=== PATIENT | female | born 1970 | race Caucasian/White ===

== ENCOUNTER → 2021-02-16 14:25 | Outpatient (BNVA) | payer MEDICAID, SELFPAY | PROVIDERS: Family Provider Family Medicine; Visit Provider Obstetrics & Gynecology | DX: R19.04 Left lower quadrant abdominal swelling, mass and lump (principal); Z90.710 Acquired absence of both cervix and uterus | CPT/HCPCS: 76830; 76857 ==

== ENCOUNTER → 2021-02-18 14:17 | Outpatient (BNVA) | payer MEDICAID, SELFPAY | PROVIDERS: Family Provider Family Medicine; Referring Provider Obstetrics & Gynecology; Visit Provider Surgery | DX: K40.20 Bilateral inguinal hernia, without obstruction or gangrene, not specified as recurrent (principal); R10.32 Left lower quadrant pain; R19.09 Other intra-abdominal and pelvic swelling, mass and lump; Z20.822 Contact with and (suspected) exposure to COVID-19 | CPT/HCPCS: 87635 ==

== ENCOUNTER 2021-02-23 11:48 | Day surgery (SDC) | payer MEDICAID, SELFPAY ==
[2021-02-22 12:51] VITALS: BMI 27.1
--- NOTE | 2021-02-23 12:12 | W.PM.OPSUD ---
Surgery/Procedure H&P Update DATE OF PROCEDURE: February 23, 2021 DATE H&P PERFORMED: 02/18/21 H&P UPDATE INFORMATION: I have reviewed H&P completed within last 30 days, I have examined patient prior to procedure and No changes to prior documentation PLANNED PROCEDURE: Operation Date: 02/23/21 13:10 Proposed Procedures p Laparoscopic Inguinal Hernia Repair [id number] K42.02(Not Applicable) - Yahir Washington MD
--- NOTE | 2021-02-23 12:24 | ANES.PREANE2 ---
Pre-Anesthetic Assessment Pre-Anesthetic Assessment: Height/Weight: Height 1.55 m Weight 65.317 kg Preop Diagnosis: Bilateral inguinal hernia Proposed Procedure: Operation Date: 02/23/21 13:10 Proposed Procedures p Laparoscopic Inguinal Hernia Repair [id number] K42.02(Not Applicable) - Yahir Washington MD Familial anesthetic complications: None Was Beta Carmine taken within 24 hours: N/A Was Clonidine taken within 24 hours: N/A Last intake: Intake Last Liquid Date 02/23/21 Last Liquid Time 08:00 Last Solid Date 02/22/21 Last Solid Time 22:30 Social: Social History: No alcohol and No tobacco Exam: Pre-Anes Outpt Exam: alert, oriented x 3, clear to auscultation bilaterally and regular rate & rhythm Airway: Cervical ROM: WNL MP: 3 Dentition: Full GI: GI: GERD (occassional) Anesthetic Plan: ASA status: 2 Anesthesia: General Risk of > 500 ml blood loss (7ml/kg in children): No PFSH Anesthesia PFSH: Medical History (Updated 02/18/21 @ 17:07 by Yahir Washington MD) Esophageal abnormality Surgery as a infant. Tubal , rupture of 2011 - Surgery for ruptured ectopic - [place], [place] by Dr. Brown Surgical History (Updated 02/18/21 @ 14:02 by Katheryn Torres) History of hysterectomy [place], [place] by Dr. Brown. Family History Other Osteoarthritis Denies family history of Diabetes CAD (coronary artery disease) Clotting disorder Dementia Psychiatric illness Chronic kidney disease (CKD) Suicide Anesthesia complication Bleeding disorder Family history of premature coronary artery disease Lung disease Cancer Hypertension Stroke Social History Smoking and tobacco status: never smoked Data Anesthesia Cardiac Studies: No Data to Display
[2021-02-23] MEDS: sodium chloride 0.9% 1,000 ML 30 ML IV (12:33)
--- NOTE | 2021-02-23 14:15 | P.OP_ITS ---
Operative Report Date of procedure: February 23, 2021 Pre-op Diagnosis: Bilateral inguinal hernia Post-op Diagnosis: Bilateral reducible indirect inguinal hernia Procedure Done: Laparoscopic total extraperitoneal repair of bilateral reducible indirect inguinal hernia with Ultrapro mesh measuring 15 x 10 cm x2 Pathology: none sent Surgeon: Yahir Washington Anesthesia: General Condition: stable Disposition: PACU Procedure: The patient was taken to the operating room. After IV antibiotic was administered, the abdomen was prepped and draped in a sterile manner. Using a 15 blade, a 1.0 cm transverse incision was made infraumbilically on the left s daljit. Subcutaneous tissue was divided using electrocautery and the anterior rectus sheath divided using an 11 blade. The rectus muscle was retracted laterally and the extraperitoneal space identified. A 11 mm port was placed and 12 mm of pneumoperitoneum was created. A 10 mm 30? scope was introduced and the retrorectus space was opened using the camera up to the pubic symphysis and 5 mm ports were placed in the midline, one 2-fingerbreadths above the pubic symphysis and the other midway between these two ports under direct visualization. Blunt dissection was carried out to open up the tissue in the midline and to the pubic symphysis, which was identified. The dissection was then carried laterally where the iliopubic tract was identified. There was no femoral, obturator or direct hernia noted. The inferior epigastric artery was identified and dissection was carried posterior to it and laterally, the space was opened up to the level of the umbilicus superior to the anterior superior iliac spine. I then proceeded to dissect out the round ligament and the indirect hernial sac was reduced . The dissection was then carried laterally where the iliopubic tract was identified. There was no femoral, obturator or direct hernia noted. The inferior epigastric artery was identified and dissection was carried posterior to it and laterally, the space was opened up to the level of the umbilicus superior to the anterior superior iliac spine. I then proceeded to dissect out the round ligament and the indirect hernial sac was reduced . 15 x 10cm Ultrapro mesh was rolled and introduced through the 10 mm port and then rolled laterally and apposed well against the abdominal wall to cover the myopectineal orifice completely and held in place with Securestraps on the left side. 15 x 10cm Ultrapro mesh was rolled and introduced through the 10 mm port and then rolled laterally and apposed well against the abdominal wall to cover the myopectineal orifice completely and held in place with Securestraps on the right side. 10 Cc of 0.5% Marcaine was infiltrated into the preperitoneal space. The extraperitoneal space was desufflated under direct visualization to ensure no sl ippage of hernial sac under the mesh. All ports were removed, the anterior rectus fascia at the infraumbilical port closed using figure of eight 0 Vicryl sutures, subcutaneous tissue approximated using 3-0 Vicryl sutures and skin at all three port sites were closed using running subcuticular 4-0 Monocryl sutures and Dermabond. 10 mL of 0.5% Marcaine was infiltrated at the port sites. The patient was stable throughout the procedure.
[2021-02-23 14:37] VITALS: BP 125/63; PULSE 67; RESP 18; TEMP 36.1; O2SAT 100
[2021-02-23 14:45] VITALS: BP 121/62; PULSE 56; RESP 18; O2SAT 100
[2021-02-23 14:49] VITALS: BP 114/60; PULSE 68; RESP 18; O2SAT 98
[2021-02-23 14:54] VITALS: BP 114/64; PULSE 68; RESP 18; TEMP 36.1; O2SAT 99
[2021-02-23 15:30] VITALS: BP 135/75; PULSE 65; RESP 18; O2SAT 95
[2021-02-23] MEDS: ondansetron 2 mg/ML SDV 2 mL 4 MG IVP (15:46)
[2021-02-23 16:00] VITALS: BP 138/75; PULSE 62; RESP 18; O2SAT 95
--- NOTE | 2021-02-24 11:30 | P.OP_ITS ---
Operative Report Date of procedure: February 23, 2021 Pre-op Diagnosis: Bilateral inguinal hernia Post-op Diagnosis: Bilateral reducible indirect inguinal hernia Procedure Done: Laparoscopic total extraperitoneal repair of bilateral reducible indirect inguinal hernia with Ultrapro mesh measuring 15 x 10 cm x2 Pathology: none sent Surgeon: Yahir Washington Anesthesia: General Condition: stable Disposition: PACU Procedure: The patient was taken to the operating room. After IV antibiotic was administered, the abdomen was prepped and draped in a sterile manner. Using a 15 blade, a 1.0 cm transverse incision was made infraumbilically on the left s daljit. Subcutaneous tissue was divided using electrocautery and the anterior rectus sheath divided using an 11 blade. The rectus muscle was retracted laterally and the extraperitoneal space identified. A balloon dissector was introduced and insufflated to open the preperitoneal space under direct visualization. A 11 mm port was placed and 12 mm of pneumoperitoneum was created. A 10 mm 30? scope was introduced and the retrorectus space was opened using the camera up to the pubic symphysis and 5 mm ports were placed in the midline, one 2-fingerbreadths above the pubic symphysis and the other midway between these two ports under direct visualization. Blunt dissection was carried out to open up the tissue in the midline and to the pubic symphysis, which was identified. The dissection was then carried laterally where the iliopubic tract was identified. There was no femoral, obturator or direct hernia noted. The inferior epigastric artery was identified and dissection was carried posterior to it and laterally, the space was opened up to the level of the umbilicus superior to the anterior superior iliac spine. I then proceeded to dissect out the round ligament and the indirect hernial sac was reduced . The dissection was then carried laterally where the iliopubic tract was identified. There was no femoral, obturator or direct hernia noted. The inferior epigastric artery was identified and dissection was carried posterior to it and laterally, the space was opened up to the level of the umbilicus superior to the anterior superior iliac spine. I then proceeded to dissect out the round ligament and the indirect hernial sac was reduced . 15 x 10cm Ultrapro mesh was rolled and introduced through the 10 mm port and then rolled laterally and apposed well against the abdominal wall to cover the myopectineal orifice completely and held in place with Securestraps on the left side. 15 x 10cm Ultrapro mesh was rolled and introduced through the 10 mm port and then rolled laterally and apposed well against the abdominal wall to cover the myopectineal orifice completely and held in place with Securestraps on the right side. There were couple of tears in the peritoneum when the balloon dissector was used and therefore two 5 mm ports were placed in the right upper quadrant and the left upper quadrant under direct visualization and the defects were closed with Securestraps. 10 Cc of 0.5% Marcaine was infiltrated into the preperitoneal space. The extraperitoneal space was desufflated under direct visualization to ensure no slippage of hernial sac under the mesh. All ports were removed, the anterior rectus fascia at the infraumbilical port closed using figure of eight 0 Vicryl sutures, subcutaneous tissue approximated using 3-0 Vicryl sutures and skin at all three port sites were closed using running subcuticular 4-0 Monocryl sutures and Dermabond. 10 mL of 0.5% Marcaine was infiltrated at the port sites. The patient was stable throughout the procedure.
== END 2021-02-23 17:04 | disposition home or self-care (01) ==
PROVIDERS: Visit Provider Surgery
PROC: (CPT 49650; principal; 2021-02-23 13:10)
DX: K40.20 Bilateral inguinal hernia, without obstruction or gangrene, not specified as recurrent (principal); K21.9 Gastro-esophageal reflux disease without esophagitis
CPT/HCPCS: 49650; 96374; J0690; J1100; J2405; J2704; J3010; J3490; J7030

== ENCOUNTER → 2023-09-17 11:40 | Outpatient (BNVA) | payer MEDICAID, SELFPAY | PROVIDERS: PCP Registered Nurse; Visit Provider Registered Nurse | DX: Z00.00 Encounter for general adult medical examination without abnormal findings (principal) | CPT/HCPCS: 80053; 80061; 85025 ==

== ENCOUNTER 2023-10-31 09:57 | Outpatient (CLI) | payer MEDICAID, SELFPAY ==
--- NOTE | 2023-10-31 10:00 | MM_ITS ---
WS: [id number] VIEWS: MLO and CC views both breasts. 3D digital tomosynthesis is also included in this exam. No comparisons.. Findings: There was no sign of mass, architectural distortion or suspicious calcification in either breast. The breasts are extremely dense which lowers the sensitivity of mammography. MM/[place] [id number] Impression: BI-RADS: 2-Benign finding. FOLLOW-UP: 1 Year Follow-up This mammogram was also analyzed by the Computer Aided Detection System R[employer] Im[employer] Director Compliance.
== END 2023-10-31 09:58 | disposition home or self-care (01) ==
LOC: MOBLMAM 10:07
PROVIDERS: PCP Registered Nurse; Visit Provider Registered Nurse
DX: Z12.31 Encounter for screening mammogram for malignant neoplasm of breast (principal)
CPT/HCPCS: 77063; 77067

== ENCOUNTER 2024-11-19 09:16 | Outpatient (CLI) | payer MEDICAID, SELFPAY ==
--- NOTE | 2024-11-19 09:20 | MM_ITS ---
WS: [id number] BILATERAL 3D TOMOSYNTHESIS DIGITAL SCREENING MAMMOGRAPHY WITH CAD CLINICAL INFORMATION: SCREENING HISTORY: Screening mammogram. No current complaints. COMPARISON: 2023 TECHNIQUE: Bilateral CC and MLO views. FINDINGS: The breasts are composed of heterogeneous fibroglandular density tissue, which can limit the detection of small underlying mass lesions. No suspicious mass, asymmetry, calcifications, or architectural distortion. No evidence of malignancy. MM/MM scr tomosynthesis [id number] IMPRESSION: DENSITY: The breasts are heterogeneously dense, which may obscure small masses. BI-RADS: 2 - Benign FOLLOW UP: 1 Year Follow-up Recommend return to annual screening mammography.
== END 2024-11-19 09:17 | disposition home or self-care (01) ==
PROVIDERS: PCP Registered Nurse; Visit Provider Registered Nurse
DX: Z12.31 Encounter for screening mammogram for malignant neoplasm of breast (principal); R92.333 Mammographic heterogeneous density, bilateral breasts
CPT/HCPCS: 77063; 77067